=== PATIENT | male | born 1940 | race Caucasian/White ===

== ENCOUNTER 2019-11-29 21:19 | Emergency (ER) | payer OTHER ==
[~2019-11-29] VITALS: Ht 175.3 cm; Wt 79.4 kg
[2019-11-29] MEDS ORDERED: GLIPIZIDE XL10 MG (21:34)
[2019-11-29] MEDS ORDERED: QUINAPRIL HCL10 MG (21:35)
[2019-11-29] MEDS ORDERED: TOPROL XL50 M1 (21:45)
[2019-11-29] MEDS ORDERED: AMLODIPINE-OLM1 EAC2 (21:46)
[2019-11-29] MEDS ORDERED: METFORMIN HCL1000 M2 (21:46)
[2019-11-29] MEDS ORDERED: LIPITOR20 MG (21:46)
[2019-11-29] MEDS ORDERED: OMEPRAZOLE-BIC1 EAC1 (21:47)
[2019-11-29] MEDS ORDERED: ASPIR 8181 MG (21:47)
[2019-11-30] MEDS ORDERED: DUI500 PO (01:47)
== END 2019-11-30 02:08 ==
LOC: ER 21:19
DX: S51.022A Laceration with foreign body of left elbow, initial encounter (principal); W07.XXXA Fall from chair, initial encounter; Y93.89 Activity, other specified; Y92.511 Restaurant or cafe as the place of occurrence of the external cause; Y99.8 Other external cause status; R42 Dizziness and giddiness